=== PATIENT | male | born 1980 | race Caucasian/White ===

== ENCOUNTER 2016-12-08 06:51 | Inpatient (IN) | payer SELFPAY ==
[~2016-12-08] VITALS: Ht 180.3 cm; Wt 107.2 kg
[~2016-12-08 06:51] MED LIST: ZYPR20TA PO
[2016-12-08 11:20] VITALS: BP 128/58; PULSE 66; RESP 16; TEMP 98.3; O2SAT 100
[2016-12-08] MEDS ORDERED: LORazepam 2 MG/ML VIAL IM PRN (12:30)
[2016-12-08] MEDS ORDERED: MAGNESIUM HYDROXIDE SUSP 30 ML CUP PO PRN ×2 (12:30→14:15)
[2016-12-08] MEDS ORDERED: diphenhydrAMINE HCL 50 MG/ML VIAL - HS PRN IM (12:30)
[2016-12-08] MEDS ORDERED: diphenhydrAMINE HCL 50 MG/ML VIAL IM PRN (12:30)
[2016-12-08] MEDS ORDERED: ACETAMINOPHEN 325 MG TAB PO PRN ×2 (12:30→14:15)
[2016-12-08] MEDS ORDERED: LORazepam 1 MG TAB PO PRN (12:30)
[2016-12-08] MEDS ORDERED: diphenhydrAMINE HCL 50 MG CAP PO PRN (12:30)
[2016-12-08] MEDS ORDERED: ALUMINUM/MAGNESIUM/SIMETH 30 ML CUP PO PRN ×2 (12:30→14:15)
[2016-12-08] MEDS ORDERED: diphenhydrAMINE HCL 50 MG CAP - HS PRN PO (12:30)
[2016-12-08] MEDS ORDERED: hydrOXYzine HCL 50 MG TAB PO PRN (14:15)
[2016-12-08] MEDS: OLANZapine ODT 10 MG TAB PO SCH ×2 (14:30→20:59)
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
[2016-12-08 16:00] VITALS: BP 122/58; PULSE 58; RESP 18; TEMP 97.3; O2SAT 99
[2016-12-08] MEDS: traZODone HCL 50 MG TAB PO SCH (20:59)
[2016-12-09 05:26] VITALS: BP 101/59; PULSE 59; RESP 16; TEMP 97.9; O2SAT 97
[2016-12-09 08:08] LABS: ANION GAP 5 MEQ/L (5-15); BICARBONATE 29.7 MEQ/L (21.0-32.0); BLOOD UREA NITROGEN 16 MG/DL (7-18); CHLORIDE 108 MEQ/L (98-107); GLOMERULAR FILTRATION RATE 104 ML/MIN (>89); SODIUM (NA) 143 MEQ/L (136-145)
[2016-12-09 08:10] LABS: HDL CHOLESTEROL 32.4 MG/DL (40.0-60.0); LDL CHOLESTEROL 113 MG/DL (0-99)
[2016-12-09] MEDS: OLANZapine ODT 10 MG TAB PO SCH ×2 (08:35→20:56)
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
--- NOTE | 2016-12-09 10:42 | HHI.PYPN ---
Subjective Remarks Patient seen laying in bed, with floor staff, chart reviewed, patient compliant medications. Patient continues to isolate, his speech is slowed with decreased rapid or pressured . The voices have diminished somewhat but are still present , he remains vigilant 30 states his temper is calmer today. He stated he had a good night's rest last night compliant medications. For now continue treatment Review of Systems Except as stated in HPI: all other systems reviewed are Neg Objective Alert: Yes [place]: Person, Place, Date, Situation Mood: Angry (mildly and subtly), Calm Affect: Restricted Memory Intact: Comment (fair) Hallucinations: Auditory Delusions: Yes Delusion Type: Paranoid Suicidal: Ideation Homicidal: Ideation Insight/Judgment Poor Labs Test 12/09/16 06:59 Sodium Level 143 MEQ/L Potassium Level 4.0 MEQ/L Chloride Level 108 MEQ/L Carbon Dioxide Level 29.7 MEQ/L Anion Gap 5 MEQ/L Blood Urea Nitrogen 16 MG/DL Creatinine 0.83 MG/DL Estimat Glomerular Filtration 104 ML/MIN Rate Random Glucose 87 MG/DL Calcium Level 8.9 MG/DL Triglycerides Level 77 MG/DL Cholesterol Level 161 MG/DL LDL Cholesterol 113 MG/DL HDL Cholesterol 32.4 MG/DL Cholesterol/HDL Ratio 4.96 RATIO Vitals/IOs Vital Signs Date Time Temp Pulse Resp B/P Pulse Ox O2 Delivery O2 Flow Rate FiO2 12/09/16 05:26 97.9 59 16 101/59 97 Assessment & Plan Problem List: (1) Schizoaffective disorder, bipolar type ICD Code: F25.0 (2) Marijuana abuse ICD Code: F12.10 Assessment & Plan Estimated LOS: days patient continues psychotic irritable though slightly softened. Compliant medications Justification for Cont. Inpt. At this time patient will decompensate if placed in a lower level of care Request HC Surrog/Guard Advoc?: No Stanley White MD Dec 09, 2016 10:41
[2016-12-09 16:15] VITALS: BP 120/56; PULSE 87; RESP 16; TEMP 98.4; O2SAT 95
[2016-12-09 17:01] LABS: HEMOGLOBIN A1a 1.2 %; HEMOGLOBIN A1b 0.9 %; HEMOGLOBIN LA1C 1.7 %; HEMOGLOBIN P3 3.2 %
[2016-12-09] MEDS: traZODone HCL 50 MG TAB PO SCH (20:56)
[2016-12-10 05:27] VITALS: BP 108/66; PULSE 59; RESP 18; TEMP 97.6; O2SAT 98
[2016-12-10] MEDS: OLANZapine ODT 10 MG TAB PO SCH ×2 (09:00→21:24)
--- NOTE | 2016-12-10 12:25 | HHI.PYPN ---
Subjective Remarks Patient seen in [place] with counselor Yadiel. Chart reviewed. Patient states voices are diminishing he is feeling calmer. Compliant medications. He does denies suicidality homicidality. Distally feel patient does have the capacity to sign voluntarily focus admission. I will lift Dailey act allow her to sign voluntary Review of Systems Except as stated in HPI: all other systems reviewed are Neg Objective Alert: Yes [place]: Person, Place, Date, Situation Mood: Angry (mildly and subtly), Calm Affect: Restricted Memory Intact: Comment (fair) Hallucinations: Auditory (markedly diminished) Delusions: Yes Delusion Type: Paranoid Suicidal: Ideation Homicidal: Ideation Insight/Judgment Poor Vitals/IOs Vital Signs Date Time Temp Pulse Resp B/P Pulse Ox O2 Delivery O2 Flow Rate FiO2 12/10/16 05:27 97.6 59 18 108/66 98 Intake and Output 12/09/16 12/09/16 12/10/16 08:00 16:00 00:00 Intake Total 960 ml Balance 960 ml Assessment & Plan Problem List: (1) Schizoaffective disorder, bipolar type ICD Code: F25.0 (2) Marijuana abuse ICD Code: F12.10 Assessment & Plan Estimated LOS: days patient psychosis is softening, showing cooperation of the medication of the milieu. Thus I will lift Dailey act allow patient to sign voluntary Justification for Cont. Inpt. At this time patient will decompensate then placed in the lower level of care Discharge Planning To be determined Stanley White MD Dec 10, 2016 12:25
[2016-12-10] MEDS: traZODone HCL 50 MG TAB PO SCH (21:24)
[2016-12-10 21:54] VITALS: BP 122/65; PULSE 66; RESP 18; TEMP 97.9; O2SAT 96
[2016-12-11 06:08] VITALS: BP 117/58; PULSE 58; RESP 18; TEMP 98; O2SAT 97
[2016-12-11] MEDS: OLANZapine ODT 10 MG TAB PO SCH ×2 (08:45→20:28)
--- NOTE | 2016-12-11 10:15 | PD.TTN ---
Present for Treatment Team Treatment Team Staff: Provider (DR White), Psych Therapist (Dianelys Tolentino), Occupational Therapist (Isabel) Patient Problems 1. Discharge planning 2. Medication compliance 3. Knowledge deficit 4. Lack of coping skills Progress Toward Goals Provider Input: Pt is taking meds willing to discuss voluntary stay Psych Therapist Input: pt is somewhat scattered but open to stay a few days and following up at [facility] Occupational Therapist Input: does not come to any groups stays in room Dianelys Tolentino [facility] Dec 11, 2016 10:15
--- NOTE | 2016-12-11 13:35 | HHI.PYPN ---
Subjective Remarks Patient seen in his room with nurse Mila, patient calm cooperative says the voices are just about gone, denying suicidality homicidality, states his temperatures under good control his head no outbursts. Is hoping for discharge tomorrow return home with his family, to follow-up with Nhan clarke Review of Systems Except as stated in HPI: all other systems reviewed are Neg Objective Alert: Yes [place]: Person, Place, Date, Situation Mood: Angry (mildly and subtly), Calm Affect: Restricted Memory Intact: Comment (fair) Hallucinations: Auditory (markedly diminished) Delusions: Yes Delusion Type: Paranoid Suicidal: Ideation Homicidal: Ideation Insight/Judgment Poor Vitals/IOs Vital Signs Date Time Temp Pulse Resp B/P Pulse Ox O2 Delivery O2 Flow Rate FiO2 12/11/16 06:08 98.0 58 18 117/58 97 Intake and Output 12/10/16 12/10/16 12/11/16 08:00 16:00 00:00 Intake Total 480 ml Balance 480 ml Assessment & Plan Problem List: (1) Schizoaffective disorder, bipolar type ICD Code: F25.0 (2) Marijuana abuse ICD Code: F12.10 Assessment & Plan Estimated LOS: days patient continues to show improvement with decrease in his auditory hallucinations come with continuing coping with unit without explosive behavior. Justification for Cont. Inpt. This time patient will decompensate if placed in a lower level of care Discharge Planning To be determined Stanley White MD Dec 11, 2016 13:35
[2016-12-11 19:03] VITALS: BP 127/58; PULSE 69; RESP 16; TEMP 98.3; O2SAT 97
[2016-12-11] MEDS: traZODone HCL 50 MG TAB PO SCH (20:28)
[2016-12-12 05:31] VITALS: BP 114/63; PULSE 70; RESP 16; TEMP 97.9; O2SAT 97
[2016-12-12] MEDS: OLANZapine ODT 10 MG TAB PO SCH (09:00)
[2016-12-12] MEDS ORDERED: OLANZ10 PO (12:16)
[2016-12-12] MEDS ORDERED: TRAZ50TA12 PO (12:16)
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
== END 2016-12-12 13:20 | disposition home or self-care (01) | DRG 885 ==
LOC: H260 11:01
PROVIDERS: ADMIT Psychiatry & Neurology Psychiatry; ATTEND Psychiatry & Neurology Psychiatry
DX: F25.0 Schizoaffective disorder, bipolar type (principal); R45.851 Suicidal ideations; F12.10 Cannabis abuse, uncomplicated
CPT/HCPCS: 80048; 80061; 83036; Q0163

== ENCOUNTER 2016-12-08 08:17 | Emergency (ER) | payer OTHER ==
[~2016-12-08] VITALS: Ht 180.3 cm; Wt 109.0 kg
[2016-12-08 08:30] VITALS: BP 130/68; PULSE 65; RESP 21; TEMP 98.2; O2SAT 96
[2016-12-08 09:16] LABS: AUTOMATED NEUTROPHIL # 3.9 TH/MM3 (1.8-7.7); BASOPHIL % 0.5 % (0.0-2.0); EOSINOPHIL # 0.3 TH/MM3 (0-0.4); EOSINOPHIL % 3.8 % (0.0-4.0); HEMATOCRIT 49.1 % (39.0-51.0); HEMO FLAGS DIFF FINAL; LYMPH % 32.2 % (9.0-44.0); LYMPHOCYTE # 2.3 TH/MM3 (1.0-4.8); MEAN CELL VOLUME 87.2 FL (80.0-100.0); MEAN CORPUSCULAR HEMOGLOBIN 29.1 PG (27.0-34.0); MEAN CORPUSCULAR HGB CONC 33.4 % (32.0-36.0); MONO % 7.7 % (0.0-8.0); NEUT % 55.8 % (16.0-70.0); PLATELET COUNT 200 TH/MM3 (150-450); RED BLOOD COUNT 5.63 MIL/MM3 (4.50-5.90); RED CELL DISTRIBUTION WIDTH 13.8 % (11.6-17.2); WHITE BLOOD COUNT 7.1 TH/MM3 (4.0-11.0)
--- NOTE | 2016-12-08 09:16 | PD ---
HPI Chief Complaint: Psychiatric Symptoms Time Seen by Provider: 09:12 Travel History International Travel<30 days: No Contact w/Intl Traveler<30days: No History of Present Illness HPI This is a 36-year-old male who has a history of schizophrenia who is transferred here from [facility] for suicidal thoughts. He says he feels like his schizophrenia is getting out of control. He has no active medical complaints. His urine tox was positive for cannabinoids at the outside hospital. PFSH Past Medical History Anxiety: Yes Depression: Yes Diminished Hearing: No Psychiatric: Yes Schizophrenia: Yes Tetanus Vaccination: < 5 Years Past Surgical History Surgical History: No Previous Surgery Social History Alcohol Use: No Tobacco Use: Yes (DAILY 2 PPD ) Substance Use: Yes ( POSITIVE POT) Allergies-Medications (Allergen,Severity, Reaction): Coded Allergies: No Known Allergies (Verified , 12/08/16) Reported Meds & Prescriptions Reported Meds & Active Scripts Active No Active Prescriptions or Reported Medications Review of Systems General / Constitutional: No: Fever, Chills Cardiovascular: No: Chest Pain or Discomfort Physical Exam Narrative GENERAL: Disheveled appearing, in no acute distress SKIN: Warm and dry. HEAD: Atraumatic. Normocephalic. ENT: No nasal bleeding or discharge. Moist mucous membranes MUSCULOSKELETAL: No obvious deformities. No clubbing. No cyanosis. No edema. NEUROLOGICAL: Awake and alert. No obvious cranial nerve deficits. Motor grossly within normal limits. Normal speech. PSYCHIATRIC: Somewhat flat affect and poor eye contact. Data Data Orders Complete Blood Count With Diff (12/08/16 08:37) Comprehensive Metabolic Panel (12/08/16 08:37) Urinalysis - C+S If Indicated (12/08/16 08:37) Psych Screen (12/08/16 08:37) Diet Regular Basic (12/08/16 Breakfast) Drug Screen, Random Urine (12/08/16 08:37) Alcohol (Ethanol) (12/08/16 08:37) Salicylates (Aspirin) (12/08/16 08:37) Tylenol (Acetaminophen) (12/08/16 08:37) Labs Laboratory Tests Test 12/08/16 08:50 White Blood Count 7.1 TH/MM3 Red Blood Count 5.63 MIL/MM3 Hemoglobin 16.4 GM/DL Hematocrit 49.1 % Mean Corpuscular Volume 87.2 FL Mean Corpuscular Hemoglobin 29.1 PG Mean Corpuscular Hemoglobin 33.4 % Concent Red Cell Distribution Width 13.8 % Platelet Count 200 TH/MM3 Mean Platelet Volume 7.7 FL Neutrophils (%) (Auto) 55.8 % Lymphocytes (%) (Auto) 32.2 % Monocytes (%) (Auto) 7.7 % Eosinophils (%) (Auto) 3.8 % Basophils (%) (Auto) 0.5 % Neutrophils # (Auto) 3.9 TH/MM3 Lymphocytes # (Auto) 2.3 TH/MM3 Monocytes # (Auto) 0.5 TH/MM3 Eosinophils # (Auto) 0.3 TH/MM3 Basophils # (Auto) 0.0 TH/MM3 CBC Comment DIFF FINAL Differential Comment MDM Medical Decision Making Medical Screen Exam Complete: Yes Emergency Medical Condition: Yes Differential Diagnosis Schizophrenia, depression, substance induced mood disorder Narrative Course This is a 36-year-old male who presents to the emergency department with depression in the setting of schizophrenia. He was transferred from outside hospital. Currently he has no medical complaints. He will be evaluated by psychiatry. Scripts No Active Prescriptions or Reported Meds Kyra Peralta MD Dec 08, 2016 09:16
[2016-12-08 09:35] LABS: ANION GAP 7 MEQ/L (5-15); AST (GOT) 19 U/L (15-37); BICARBONATE 24.9 MEQ/L (21.0-32.0); BLOOD UREA NITROGEN 14 MG/DL (7-18); CHLORIDE 108 MEQ/L (98-107); GLOMERULAR FILTRATION RATE 137 ML/MIN (>89); SODIUM (NA) 140 MEQ/L (136-145)
[2016-12-08 09:38] LABS: ACETAMINOPHEN LESS THAN 2.0 MCG/ML (10.0-30.0); ALKALINE PHOSPHATASE 105 U/L (45-117); ALT (GPT) 24 U/L (12-78); TOTAL BILIRUBIN ADULT 0.7 MG/DL (0.2-1.0)
== END 2016-12-08 11:00 ==
LOC: NEPD 08:17
DX: F20.9 Schizophrenia, unspecified (principal)
CPT/HCPCS: 80053; 80307; 85025; 99284

== ENCOUNTER 2017-01-17 13:41 | Inpatient (IN) | payer SELFPAY ==
[~2017-01-17] VITALS: Ht 180.3 cm; Wt 107.7 kg
[~2017-01-17 13:41] MED LIST changes: +OLANZ10 PO; +TRAZ50TA12 PO; -ZYPR20TA PO
[2017-01-17 14:00] VITALS: BP 118/76; PULSE 82; RESP 18; TEMP 97.8; O2SAT 96
--- NOTE | 2017-01-17 15:53 | PD ---
HPI Chief Complaint: Psychiatric Symptoms Time Seen by Provider: 15:50 Travel History International Travel<30 days: No Contact w/Intl Traveler<30days: No Traveled to known affect area: No History of Present Illness HPI 36-year-old male that presents to the ED for evaluation of schizophrenia. Patient was Dailey acted at [facility] secondary to hallucinations and hearing voices. Patient has a chronic history of schizophrenia and has been admitted to this hospital before. He apparently is noncompliant. He voices no suicidal or homicidal ideation. He had blood work and imaging at the [facility] and was all unremarkable. Patient was apparently medically clear at the facility and was accepted by one of or psychiatrist here. She denies any substance abuse. no other medical issues. [facility] Past Medical History Anxiety: Yes Depression: Yes Cancer: No Cardiovascular Problems: No Diabetes: No Diminished Hearing: No Genitourinary: No Musculoskeletal: No Neurologic: No Psychiatric: Yes (Hx of treatment for Schizophrenia) Reproductive: No Respiratory: No Schizophrenia: Yes (SCHIZOAFFECTIVE, BIPOLAR TYPE) Seizures: No Past Surgical History Surgical History: No Previous Surgery Social History Alcohol Use: No Tobacco Use: No Substance Use: Yes (THC) Allergies-Medications (Allergen,Severity, Reaction): Coded Allergies: No Known Allergies (Verified , 01/17/17) Reported Meds & Prescriptions Reported Meds & Active Scripts Active Trazodone (Trazodone HCl) 50 Mg Tab 50 Mg PO HS Zyprexa Zydis (Olanzapine) 10 Mg Tab 10 Mg PO BID Review of Systems Except as stated in HPI: all other systems reviewed are Neg Physical Exam Narrative GENERAL: SKIN: Warm and dry. HEAD: Atraumatic. Normocephalic. EYES: Pupils equal and round. No scleral icterus. No injection or drainage. ENT: No nasal bleeding or discharge. Mucous membranes pink and moist. Tongue is midline. Uvula deviation. NECK: Trachea midline. No JVD. CARDIOVASCULAR: Regular rate and rhythm. No murmurs, S3, S4. RESPIRATORY: No accessory muscle use. Clear to auscultation. Breath sounds equal bilaterally. GASTROINTESTINAL: Abdomen soft, non-tender, nondistended. Hepatic and splenic margins not palpable. MUSCULOSKELETAL: Extremities without clubbing, cyanosis, or edema. No obvious deformities. Full range of motion of the upper and lower extremities bilaterally. 2+ pulses bilaterally. NEUROLOGICAL: Awake and alert. No obvious cranial nerve deficits. Motor grossly within normal limits. Five out of 5 muscle strength in the arms and legs. Normal speech. PSYCHIATRIC: Appropriate mood and affect; insight and judgment normal. Data Data Last Documented VS Vital Signs Date Time Temp Pulse Resp B/P Pulse Ox O2 Delivery O2 Flow Rate FiO2 01/17/17 14:00 97.8 82 18 118/76 96 Room Air Orders Diet Regular Basic (01/17/17 Lunch) Psych Screen (01/17/17 13:54) Diet Regular Basic (01/17/17 Dinner) MDM Medical Decision Making Medical Screen Exam Complete: Yes Emergency Medical Condition: Yes Medical Record Reviewed: Yes Differential Diagnosis Depression versus suicidal ideation versus anxiety versus adjustment disorder versus mood disorder versus bipolar disorder versus schizophrenia versus paranoid disorder versus psychosis versus substance abuse versus alcohol abuse versus alcohol induced psychosis versus homicidality addition versus cutting versus personality disorder Narrative Course 36-year-old male that presents to the ED for evaluation of psych. Patient was properly examined and was found to have no signs of acute medical distress. Labs were drawn on a different facility and also able to review some of the records and there is not abnormality. This time patient is deemed medically cleared to be seen by psychiatry. Okay to be seen by psych. Mental health screening was discussed with the patient. Diagnosis Primary Impression: Schizophrenia, paranoid type Fred Pardo Jan 17, 2017 15:53
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
[2017-01-17] MEDS ORDERED: MAGNESIUM HYDROXIDE SUSP 30 ML CUP PO PRN (17:45)
[2017-01-17] MEDS ORDERED: LORazepam 2 MG/ML VIAL IM PRN (17:45)
[2017-01-17] MEDS ORDERED: ACETAMINOPHEN 325 MG TAB PO PRN (17:45)
[2017-01-17] MEDS ORDERED: ALUMINUM/MAGNESIUM/SIMETH 30 ML CUP PO PRN (17:45)
[2017-01-17] MEDS ORDERED: HALOPERIDOL 5 MG TAB PO PRN (17:45)
[2017-01-17] MEDS ORDERED: BENZTROPINE MESYLATE 2 MG/2 ML VIAL IM PRN (17:45)
[2017-01-17] MEDS ORDERED: HALOPERIDOL LACTATE 5 MG/ML AMP IM PRN (17:45)
[2017-01-17] MEDS ORDERED: BENZTROPINE MESYLATE 1 MG TAB PO PRN (17:45)
[2017-01-17 18:14] VITALS: BP 140/84; PULSE 82; RESP 18; TEMP 98.2; O2SAT 98
[2017-01-17] MEDS: LORazepam 1 MG TAB PO PRN (18:33)
[2017-01-17] MEDS: OLANZapine ODT 15 MG TAB PO SCH (21:36)
[2017-01-17] MEDS: traZODone HCL 50 MG TAB PO PRN (21:37)
[2017-01-18 05:35] VITALS: BP 115/52; PULSE 60; RESP 18; TEMP 98.3; O2SAT 96
[2017-01-18] MEDS: NICOTINE 21 MG/24 HR PATCH T-DERMAL SCH (09:00)
[2017-01-18] MEDS: REMOVE OLD PATCH T-DERMAL SCH (09:00)
[2017-01-18] MEDS: LORazepam 1 MG TAB PO PRN ×2 (13:35→20:27)
--- NOTE | 2017-01-18 17:05 | HHI.PYPN ---
Subjective Remarks This is a request for second opinion. Patient was seen, case discussed with nursing, and admission note reviewed. Patient has has not had any outbursts or aggressive behavior on the unit. He admits to going off his medications and having a relapse of auditory hallucinations. Since starting medication here, patient says the hallucinations are less bothersome. He says they are telling him to hurt himself but he has no ideation intent or plan of doing so. No delusions were elicited. Objective Alert: Yes [place]: Person, Place Mood: Oppositional Affect: Other (anxious) Memory Intact: Immediate (not evaluated) Hallucinations: Auditory (less bothersome, to hurt himself) Delusions: Yes Delusion Type: Paranoid (internally stimulated) Suicidal: Ideation (denies) Homicidal: Ideation (denies) Insight/Judgment Poor Vitals/IOs Vital Signs Date Time Temp Pulse Resp B/P Pulse Ox O2 Delivery O2 Flow Rate FiO2 01/18/17 08:02 01/18/17 05:35 98.3 60 18 96 01/17/17 14:00 Room Air Assessment & Plan Problem List: (1) Schizophrenia, paranoid type ICD Code: F20.0 (2) Marijuana abuse ICD Code: F12.10 Assessment & Plan I agree with the first opinion to continue petition. Criteria include acute psychosis Justification for Cont. Inpt. Patient will decompensate in a less restrictive setting Request HC Surrog/Guard Advoc?: Yes Dillan Gloria DO Jan 18, 2017 17:05
[2017-01-18 17:16] VITALS: BP 120/81; PULSE 85; RESP 18; TEMP 99; O2SAT 99
[2017-01-18] MEDS: OLANZapine ODT 15 MG TAB PO SCH (20:20)
[2017-01-19 04:31] VITALS: BP 106/69; PULSE 76; RESP 20; TEMP 98.7; O2SAT 96
[2017-01-19] MEDS: REMOVE OLD PATCH T-DERMAL SCH (09:00)
[2017-01-19] MEDS: NICOTINE 21 MG/24 HR PATCH T-DERMAL SCH (09:00)
--- NOTE | 2017-01-19 09:28 | HHI.PYPN ---
Subjective Remarks Patient seen and examined with nurse and counselor. Chart reviewed. Case discussed with nursing staff who reports patient has been quiet. Remains delusional about looking for his . On my examination today, the patient continues to articulate delusions about needing to look for his . He also says that "years ago, I lost my keys to my house. There is this nancy on the unit [referring to a manic peer] who's got my keys." He says that, although he does not know this other patient "I've known for a long time that he has my keys." Denies side effects from medications. No physical complaints. Review of Systems ROS Limitations: Psychotic, Poor Historian Except as stated in HPI: all other systems reviewed are Neg Objective Alert: Yes [place]: Person, Place Mood: Calm Affect: Blunted Memory Intact: Comment (somewhat confabulated but generally intact) Hallucinations: Other (denies AVH today) Delusions: Yes Delusion Type: Paranoid Suicidal: Ideation (denies SI) Homicidal: Ideation (denies HI) Insight/Judgment Poor Remarks No motor abnormalities. Grooming and hygiene fair. Thought process generally linear. Labs Labs reviewed. Vitals/IOs Vital Signs Date Time Temp Pulse Resp B/P Pulse Ox O2 Delivery O2 Flow Rate FiO2 01/19/17 04:31 98.7 76 20 106/69 96 01/17/17 14:00 Room Air Assessment & Plan Problem List: (1) Schizophrenia, paranoid type ICD Code: F20.0 (2) Marijuana abuse ICD Code: F12.10 Assessment & Plan Titrate Zyprexa 20 mg at bedtime to target psychosis. Continue to monitor on the unit. Continue other medications and care as ordered. Justification for Cont. Inpt. Impairment in reality construction. Medication changes. High risk for decompensation in a less restrictive environment. Discharge Planning Pending psychiatric stabilization Request HC Surrog/Guard Advoc?: Yes Lukas Thomas MD Jan 19, 2017 09:28
[2017-01-19 10:53] LABS: ANION GAP 8 MEQ/L (5-15); BICARBONATE 26.7 MEQ/L (21.0-32.0); BLOOD UREA NITROGEN 14 MG/DL (7-18); CHLORIDE 106 MEQ/L (98-107); GLOMERULAR FILTRATION RATE 122 ML/MIN (>89); POTASSIUM 4.2 MEQ/L (3.5-5.1); SODIUM (NA) 141 MEQ/L (136-145)
[2017-01-19 10:55] LABS: HDL CHOLESTEROL 35.5 MG/DL (40.0-60.0); LDL CHOLESTEROL 81 MG/DL (0-99)
[2017-01-19 17:05] LABS: HEMOGLOBIN A1a 1.1 %; HEMOGLOBIN A1b 0.9 %; HEMOGLOBIN Ao 85.9 %; HEMOGLOBIN F 0.9 %; HEMOGLOBIN LA1C 1.8 %; HEMOGLOBIN P3 3.5 %
[2017-01-19 18:02] VITALS: BP 104/57; PULSE 72; RESP 18; TEMP 98.2; O2SAT 97
[2017-01-19] MEDS: OLANZapine ODT 20 MG TAB PO SCH (21:00)
[2017-01-19] MEDS: LORazepam 1 MG TAB PO PRN (22:01)
[2017-01-20 06:07] VITALS: BP 114/66; PULSE 80; RESP 18; TEMP 97.4; O2SAT 95
--- NOTE | 2017-01-20 12:56 | HHI.PYPN ---
Subjective Remarks Patient seen and examined with counselor and occupational therapist. Chart reviewed. Case discussed in treatment team. Patient remains delusional today. 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 He says this patient "might even help me find my ." Intrusive. Internally stimulated. We discuss the possibility of SENIOR CARE placement, and patient is quite resistant to this. Denies side effects from medications. No physical complaints. Review of Systems ROS Limitations: Psychotic, Poor Historian Except as stated in HPI: all other systems reviewed are Neg Objective Alert: Yes [place]: Person, Place Mood: Calm Affect: Blunted Memory Intact: Comment (not assessed) Hallucinations: Auditory (int stim) Delusions: Yes Delusion Type: Paranoid Suicidal: Ideation (No SI) Homicidal: Ideation (No HI) Insight/Judgment Poor Remarks No motor abnormalities noted. Grooming and hygiene fair. Thought process somewhat perseverative. Labs Labs reviewed. Vitals/IOs Vital Signs Date Time Temp Pulse Resp B/P Pulse Ox O2 Delivery O2 Flow Rate FiO2 01/20/17 06:07 97.4 80 18 114/66 95 01/17/17 14:00 Room Air Assessment & Plan Problem List: (1) Schizophrenia, paranoid type ICD Code: F20.0 (2) Marijuana abuse ICD Code: F12.10 Assessment & Plan Inadequate response to current therapy. Titrate Zyprexa to 5/20mg to target psychosis. Continue to monitor on the high acuity unit. Continue other medications and care as ordered. Justification for Cont. Inpt. Medication changes in process. Impairment in reality construction. High risk for decompensation in a less restrictive environment. Discharge Planning Pending stabilization. Patient would likely benefit from placement. Request HC Surrog/Guard Advoc?: Yes Lukas Thomas MD Jan 20, 2017 12:56
--- NOTE | 2017-01-20 13:36 | PD.TTN ---
Present for Treatment Team Treatment Team Staff: Provider (Dr. Thomas), Nurse (Sushma Garibay, NICK), Occupational Therapist (Mike Putnam OT) Patient Problems 1. Discharge planning 2. Medication compliance 3. Knowledge deficit 4. Lack of coping skills Progress Toward Goals Provider Input: Pt medication regiment will continue to be adjusted to help further stabilization. Nurse Input: Pt presents as no behavioral issues, seclusive, medication compliant and delusional. Psych Therapist Input: Pt remains with poor insight, delusional, disorganized, calm, appropriate, withdrawn and uncooperative with idea of placement at [facility]. Occupational Therapist Input: Pt is attending select groups but does not participate. Documentation Scribe: FÁTIMA Caballero Date Resolved: Jan 20, 2017 Luis Daniel Arnold Jan 20, 2017 13:36
[2017-01-20 18:40] VITALS: BP 118/74; PULSE 80; RESP 18; TEMP 97.8; O2SAT 96
[2017-01-20] MEDS: OLANZapine ODT 20 MG TAB PO SCH (20:44)
[2017-01-20] MEDS: traZODone HCL 50 MG TAB PO PRN (20:44)
[2017-01-21 05:45] VITALS: BP 106/56; PULSE 56; RESP 18; TEMP 97.9; O2SAT 100
[2017-01-21] MEDS: OLANZapine 5 MG TAB PO SCH (09:00)
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
[2017-01-21 18:14] VITALS: BP 129/75; PULSE 18; RESP 18; TEMP 99.6; O2SAT 98
[2017-01-21] MEDS: OLANZapine ODT 20 MG TAB PO SCH (21:07)
[2017-01-21] MEDS: traZODone HCL 50 MG TAB PO PRN (21:24)
[2017-01-21] MEDS: LORazepam 1 MG TAB PO PRN (23:09)
[2017-01-22 06:06] VITALS: BP 100/55; PULSE 55; RESP 18; TEMP 97; O2SAT 97
[2017-01-22] MEDS: OLANZapine 5 MG TAB PO SCH (08:36)
[2017-01-22] MEDS ORDERED: OLANZ20 PO (11:00)
[2017-01-22] MEDS ORDERED: OLAN5TAB PO (11:00)
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
== END 2017-01-22 11:55 | disposition home or self-care (01) | DRG 885 ==
LOC: NEPJ 13:41 → NEDA 17:31 → H270 18:06
PROVIDERS: ADMIT Psychiatry & Neurology Psychiatry; ATTEND Psychiatry & Neurology Psychiatry
DX: F20.0 Paranoid schizophrenia (principal); R45.851 Suicidal ideations; Z91.14 Patient's other noncompliance with medication regimen; F32.9 Major depressive disorder, single episode, unspecified; F41.9 Anxiety disorder, unspecified; F12.10 Cannabis abuse, uncomplicated; F17.210 Nicotine dependence, cigarettes, uncomplicated; Z91.5 Personal history of self-harm
CPT/HCPCS: 80048; 80061; 83036

== ENCOUNTER 2017-11-26 06:46 | Inpatient (IN) | payer OTHER ==
[~2017-11-26 06:46] MED LIST changes: +HALO100P IM; +HALO10TA PO; -OLANZ10 PO; -TRAZ50TA12 PO
[2017-11-26 07:53] VITALS: BP 120/70; PULSE 78; RESP 17; TEMP 97; O2SAT 95
--- NOTE | 2017-11-26 12:10 | HHI.HP ---
Provisional Diagnosis Admission Date November 26, 2017 at 07:58 [place] I. 1. Schizophrenia, paranoid type, acute exacerbation 2. Suspected polysubstance abuse [place] II. Deferred Certification of Person's Competence To Provide Express and Informed Consent I have personally examined Arturo Pardo , a person being served at [facility] on, November 26, 2017 12:10. Express and informed consent means consent voluntarily given in writing, by a competent person, after sufficient explanation and disclosure of the subject matter involved to enable the person to make a knowing and willful decision without any element of force, fraud, deceit, duress, or other form of constraint or coercion. This person is 18 years of age or older, is not now known to be incompetent to consent to treatment with a guardian advocate, and does not have a health care surrogate or proxy currently making medical treatment decisions. I have found this person to be one of the following: [x] Competent to provide express and informed consent, as defined above, for voluntary admission to this facility and is competent to provide express and informed consent for treatment. He/she has the consistent capacity to make well reasoned, willful, and knowing decisions concerning his or her medical or mental health treatment. The person fully and consistently understands the purpose of the admission for examination/placement and is fully capable of personally exercising all rights assured under [place] [] Incompetent to provide express and informed consent to voluntary admission, and this is incompetent to provide express and informed consent to treatment. The person must be transferred to involuntary status and a petition for a guardian advocate filed with the Circuit Court. [] Refusing to provide express and informed consent to voluntary admission but is competent to provide express and informed consent for treatment. The person must be discharged or transferred to involuntary status. Form shall be completed within 24 hours of a person's arrival at the receiving facility and filed in the clinical record of each person: 1. Admitted on a voluntary basis 2. Permitted to provide express and informed consent to his/her own treatment 3. Allowed to transfer from involuntary to voluntary status 4. Prior to permitting a person to consent to his or her own treatment after having been previously found incompetent to consent to treatment. History of Present Illness Capacity: Has Capacity Psych Chief Complaint: Psychosis HPI Mr. Pardo is a 37-year-old male with a history of schizophrenia who presents in transfer from [facility] to [facility] under a [place]iley act. Documentation from outside hospital reviewed. Patient presented there complaining of depression and suicidal ideation as well as seeing and hearing "biblical stuff. " He also reported command auditory hallucinations to self injure to the psychiatric screener at outside hospital. Reviewing our electronic medical record, I note that the patient was most recently admitted under my care at the beginning of October, at which time he was started on long-acting injectable Haldol decanoate. Patient seen and examined with nurse. Chart reviewed. Case discussed with nursing staff. On my examination today, the patient is a somewhat vague historian. He endorses ongoing auditory hallucinations of "same ol', same ol'. " When pressed, he reports to hearing indistinct voices "repeating stuff over and over again." He also reports some paranoia regarding his neighbors. No other delusional material elicited. He denies any suicidal or homicidal ideation. Mood is "okay, I guess" although the patient does report that he has been feeling down for the last few days without specific stressor. No other depressive or hypomanic/manic symptoms. Affect is quite flat. Remainder of the psychiatric ROS is negative. No acute physical complaints. Past psychiatric history: Patient has a history of schizophrenia. He follows at [facility]. He does report that he has followed up and has also received a long-acting injectable, but see below. Medication nonadherence is documented at outside hospital. He denies any history of psychiatric admissions or suicide attempts. Family history: The patient denies any family history of mental illness. Chemical dependency history: The patient denies any abuse of drugs or alcohol, although urine toxicology at outside hospital is positive for cocaine and cannabinoids. He can provide no explanation for this finding. Social history: Patient reports that this is unchanged from previous assessments. He denies any access to guns or firearms. I did place a call over to [facility] and patient's most recent reported medications were Zyprexa 10 mg at bedtime and trazodone 100 mg at bedtime. There is no record of recent long-acting injectable administration. Review of Systems ROS Limitations: Psychotic, Poor Historian Except as stated in HPI: all other systems reviewed are Neg Past Family Social History Coded Allergies: No Known Allergies (Verified Allergy, Unknown, 4/3/18) Active Scripts Haloperidol Decanoate Inj (Haldol Decanoate Inj) 100 Mg/Ml Inj, 300 MG IM Q28D for Schizophrenia, #3 VIAL 0 Refills This dose of Haldol Dec is due on 11/10/2017. Prov:Lukas Thomas MD 10/19/17 Haloperidol (Haloperidol) 10 Mg Tab, 10 MG PO BID for Mental Health for 15 Days , #30 TAB 1 Refill Continue taking oral Haldol until your next Haldol Decanoate injection or as directed by outpatient provider. Prov:Lukas Thomas MD 10/19/17 Physical Exam Vital Signs Vital Signs Date Time Temp Pulse Resp B/P (MAP) Pulse Ox O2 Delivery O2 Flow Rate FiO2 11/26/17 07:53 97.0 78 17 120/70 (87) 95 Lab Results Laboratories from outside hospital reviewed: CBC unremarkable. CMP unremarkable. Tylenol, salicylate and alcohol level all undetectable. Toxicological findings as above. Urinalysis fairly bland. Mental Status Examination Appearance: Disheveled Consciousness: Alert Orientation: x4 Motor Activity: Normal gait Speech: Slow Language: Adequate Fund of Knowledge: Adequate Attention and Concentration: Adequate Memory: Unremarkable (Grossly intact on clinical exam) Mood: Other ("Okay") Affect: Flat Thought Process & Associations: Intact Thought Content: Hallucinations Hallucination Type: Auditory (Vague. No reported command auditory hallucinations) Delusion Type: Paranoid Suicidal Ideation: No Suicidal Plan: No Suicidal Intention: No Homicidal Ideation: No Homicidal Plan: No Homicidal Intention: No Mental Status Exam Remarks Insight and judgment are fair to poor at best Assessment & Plan Problem List: (1) Schizophrenia, paranoid type ICD Codes: F20.0 - Paranoid schizophrenia Status: Acute (2) Polysubstance abuse ICD Codes: F19.10 - Other psychoactive substance abuse, uncomplicated Assessment & Plan 37-year-old male with psychiatric history as detailed above who presents in transfer from outside hospital under a Dailey act. On my examination today, the patient reports auditory hallucinations and paranoia. Medication nonadherence is suspected. It does not appear that the patient has received a long-acting injectable as he reported. I will plan to admit the patient to the inpatient psychiatric unit for safety, observation and stabilization. Admit inpatient. Voluntary status. Resume oral Haldol 10 mg twice daily. So long as this is well tolerated and there is no evidence that the patient has in fact received a long-acting injectable, plan to administer booster dose of Haldol decanoate. Atarax as needed for anxiety. Benadryl as needed for sleep. Cogentin as needed for EPS. Vitals every shift. Counselor to see. Disposition planning. Estimated length of stay: 5-7 days. Discharge Planning Pending psychiatric stabilization Request HC Surrog/Guard Advoc?: No Lukas Thomas MD November 26, 2017 12:10
[2017-11-26] MEDS ORDERED: BENZTROPINE MESYLATE 2 MG/2 ML VIAL IM PRN (12:30)
[2017-11-26] MEDS ORDERED: ACETAMINOPHEN 325 MG TAB PO PRN (12:30)
[2017-11-26] MEDS ORDERED: ALUMINUM/MAGNESIUM/SIMETH 30 ML CUP PO PRN (12:30)
[2017-11-26] MEDS ORDERED: MAGNESIUM HYDROXIDE SUSP 30 ML CUP PO PRN (12:30)
[2017-11-26] MEDS ORDERED: NICOTINE 21 MG/24 HR PATCH T-DERMAL PRN (12:30)
[2017-11-26] MEDS ORDERED: BENZTROPINE MESYLATE 1 MG TAB PO PRN (12:30)
[2017-11-26] MEDS: hydrOXYzine HCL 50 MG TAB PO PRN (20:52)
[2017-11-26] MEDS: diphenhydrAMINE HCL 50 MG CAP PO PRN (20:52)
[2017-11-26] MEDS: HALOPERIDOL 10 MG TAB PO SCH (20:52)
[2017-11-26] MEDS: REMOVE OLD NICODERM (NICOTINE) PATCH T-DERMAL SCH (21:00)
[2017-11-27 06:13] VITALS: BP 123/77; PULSE 58; RESP 16; TEMP 98.1; O2SAT 96
[2017-11-27] MEDS: HALOPERIDOL 10 MG TAB PO SCH ×2 (09:59→20:58)
--- NOTE | 2017-11-27 15:16 | HHI.PYPN ---
Subjective Chief Complaint: Psychosis Remarks Patient seen for follow, chart reviewed. Discussion nursing staff reported the patient denying any suicide ideations or perceptual disturbances today. Patient was found lying hospital and noted, cooperative. Patient states that he is feeling "good" reports that his neighbors and brought to the hospital because he was yelling at his front door was unable to elaborate more. Patient states that he has not hallucinations "all the time" and that really rarely go away. Patient denies any suicide ideations at this time continues report feeling depressed. Patient denies any paranoid ideation today. Review of Systems Except as stated in HPI: all other systems reviewed are Neg Mental Status Examination Appearance: Disheveled Consciousness: Alert Orientation: x4 Motor Activity: Normal gait Speech: Slow Language: Adequate Fund of Knowledge: Adequate Attention and Concentration: Adequate Memory: Unremarkable (Grossly intact on clinical exam) Mood: Other ("Okay") Affect: Flat Thought Process & Associations: Intact Thought Content: Hallucinations Hallucination Type: Auditory (Vague. No reported command auditory hallucinations) Delusion Type: Paranoid Suicidal Ideation: No Suicidal Plan: No Suicidal Intention: No Homicidal Ideation: No Homicidal Plan: No Homicidal Intention: No Results Vitals/IOs Vital Signs Date Time Temp Pulse Resp B/P (MAP) Pulse Ox O2 Delivery O2 Flow Rate FiO2 11/27/17 06:13 98.1 58 16 123/77 (92) 96 Assessment & Plan Problem List: (1) Schizophrenia, paranoid type ICD Codes: F20.0 - Paranoid schizophrenia Status: Acute (2) Polysubstance abuse ICD Codes: F19.10 - Other psychoactive substance abuse, uncomplicated Assessment & Plan Patient this time continues report feeling depressed but denying suicide ideations. Patient denying any paranoid ideation has a compliant with treatment but also may be minimizing the intensity of auditory hallucinations. We will continue monitor mood and behavior. Discharge planning in progress. Justification for Cont. Inpt. At risk of further decompensation at lower level care. Request HC Surrog/Guard Advoc?: No Elvin Jerry MD November 27, 2017 15:16
[2017-11-27] MEDS: REMOVE OLD NICODERM (NICOTINE) PATCH T-DERMAL SCH (21:00)
[2017-11-28 06:14] VITALS: BP 121/75; PULSE 64; RESP 16; TEMP 97.9; O2SAT 99
--- NOTE | 2017-11-28 09:58 | HHI.PYPN ---
Subjective Chief Complaint: Psychosis Remarks Chart reviewed and discussed with nursing staff. Night staff report that he has been seeing demons and religiously pre-occupied. Patient in his room with NICK Fowler present. Patient denies any suicidal ideations. Appears internally stimulated. He is complaining of movement and discomfort in his legs. Will add cogentin to his medications. He endorses receiving a Haldol Dec [facility] two weeks ago [facility]. Eating and sleeping well. Cooperative and compliant. Mental Status Examination Appearance: Appropriate Consciousness: Alert Orientation: x4 Motor Activity: Normal gait Speech: Slow Language: Adequate Fund of Knowledge: Adequate Attention and Concentration: Adequate Memory: Unremarkable (Grossly intact on clinical exam) Mood: Appropriate Affect: Flat Thought Process & Associations: Intact Thought Content: Hallucinations Hallucination Type: Auditory (Vague. No reported command auditory hallucinations) Delusion Type: Paranoid Suicidal Ideation: No Suicidal Plan: No Suicidal Intention: No Homicidal Ideation: No Homicidal Plan: No Homicidal Intention: No Results Vitals/IOs Vital Signs Date Time Temp Pulse Resp B/P (MAP) Pulse Ox O2 Delivery O2 Flow Rate FiO2 11/28/17 06:14 97.9 64 16 121/75 (90) 99 Assessment & Plan Problem List: (1) Schizophrenia, paranoid type ICD Codes: F20.0 - Paranoid schizophrenia Status: Acute (2) Polysubstance abuse ICD Codes: F19.10 - Other psychoactive substance abuse, uncomplicated Assessment & Plan Patient is cooperative . Eating and sleeping well. Complaining of movement in his legs. Will start on Cogentin. Continue to work towards discharge. Routinely is followed by [facility] . Estimated LOS: days Justification for Cont. Inpt. Moving patient to a lower level of care may result in his decompensation. Request HC Surrog/Guard Advoc?: No Ida Parry November 28, 2017 09:58
[2017-11-28] MEDS: HALOPERIDOL 10 MG TAB PO SCH ×2 (10:47→21:23)
--- NOTE | 2017-11-28 10:58 | HHI.PYPN ---
Subjective Chief Complaint: Psychosis Remarks Chart reviewed and discussed with nursing staff. Patient is very seclusive and timid. Patient complaining of pain in his mouth. Will order a hospitalist consult to rule out thrush. Patient returned to bed after breakfast. Speech is with low tone and volume. He denies any concerns and appears very depressed. Denies any suicidal ideations at this time. Mental Status Examination Appearance: Appropriate Consciousness: Alert Orientation: x4 Motor Activity: Normal gait Speech: Slow Language: Adequate Fund of Knowledge: Adequate Attention and Concentration: Adequate Memory: Unremarkable (Grossly intact on clinical exam) Mood: Appropriate Affect: Flat, Blunt Thought Process & Associations: Intact Thought Content: Appropriate Hallucination Type: None Delusion Type: Paranoid Suicidal Ideation: No Suicidal Plan: No Suicidal Intention: No Homicidal Ideation: No Homicidal Plan: No Homicidal Intention: No Results Vitals/IOs Vital Signs Date Time Temp Pulse Resp B/P (MAP) Pulse Ox O2 Delivery O2 Flow Rate FiO2 11/28/17 06:14 97.9 64 16 121/75 (90) 99 Assessment & Plan Problem List: (1) Schizophrenia, paranoid type ICD Codes: F20.0 - Paranoid schizophrenia Status: Acute (2) Polysubstance abuse ICD Codes: F19.10 - Other psychoactive substance abuse, uncomplicated Assessment & Plan: Patient is depressed, secluded and very shy. He is complaining of pain in his mouth and having difficulty eating. Will place a hospitalist consult to rule out thrush. He will be encouraged to participate in outdoor and unit activities. Assessment & Plan Estimated LOS: days Justification for Cont. Inpt. Moving patient to a lower level of care may result in his decompensation. Request HC Surrog/Guard Advoc?: Ida Lord November 28, 2017 10:58
[2017-11-28] MEDS: BENZTROPINE MESYLATE 1 MG TAB PO SCH ×2 (11:00→21:23)
[2017-11-28 18:18] VITALS: BP 131/79; PULSE 97; RESP 17; TEMP 97.8; O2SAT 98
[2017-11-28] MEDS: diphenhydrAMINE HCL 50 MG CAP PO PRN (21:23)
[2017-11-28] MEDS: REMOVE OLD NICODERM (NICOTINE) PATCH T-DERMAL SCH (21:24)
[2017-11-29] MEDS: hydrOXYzine HCL 50 MG TAB PO PRN (05:46)
[2017-11-29 06:03] VITALS: BP 113/69; PULSE 75; RESP 18; TEMP 98.7; O2SAT 98
[2017-11-29] MEDS: HALOPERIDOL 10 MG TAB PO SCH ×2 (09:32→21:25)
[2017-11-29] MEDS: BENZTROPINE MESYLATE 1 MG TAB PO SCH ×2 (09:32→21:25)
--- NOTE | 2017-11-29 15:04 | HHI.PYPN ---
Subjective Chief Complaint: Psychosis Remarks Patient seen and examined in weekend coverage. Chart reviewed. Case discussed with nursing staff. On my examination today, patient is in good spirits. He feels improved versus admission. He denies any SI, HI or AVH. Complains of some mild stiffness from antipsychotic but otherwise no side effects. Perhaps some mildly increased tone on exam but no cogwheeling, no dystonias, no dyskinesias. No other physical complaints. Review of Systems Except as stated in HPI: all other systems reviewed are Neg Mental Status Examination Appearance: Appropriate Consciousness: Alert Orientation: x4 Motor Activity: Normal gait Speech: Unremarkable Language: Adequate Fund of Knowledge: Adequate Attention and Concentration: Adequate Memory: Unremarkable (Grossly intact on clinical exam) Mood: Appropriate Affect: Appropriate Thought Process & Associations: Intact Thought Content: Appropriate Hallucination Type: None Delusion Type: None Suicidal Ideation: No Suicidal Plan: No Suicidal Intention: No Homicidal Ideation: No Homicidal Plan: No Homicidal Intention: No Insight: Poor Judgment: Poor Results Labs Labs reviewed Vitals/IOs Vital Signs Date Time Temp Pulse Resp B/P (MAP) Pulse Ox O2 Delivery O2 Flow Rate FiO2 11/29/17 06:03 98.7 75 18 113/69 (84) 98 Assessment & Plan Problem List: (1) Schizophrenia, paranoid type ICD Codes: F20.0 - Paranoid schizophrenia Status: Acute (2) Polysubstance abuse ICD Codes: F19.10 - Other psychoactive substance abuse, uncomplicated Assessment & Plan Titrate Cogentin to 2 mg twice daily to target probable EPS. Continue other medications as ordered. Continue other care as ordered. Justification for Cont. Inpt. Risk for decompensation in less restrictive environment. Discharge Planning As ordered by primary psychiatrist Request HC Surrog/Guard Advoc?: No Lukas Thomas MD November 29, 2017 15:04
[2017-11-29 18:56] VITALS: BP 120/76; PULSE 80; RESP 16; TEMP 97.7; O2SAT 99
[2017-11-29] MEDS: REMOVE OLD NICODERM (NICOTINE) PATCH T-DERMAL SCH (21:00)
[2017-11-29] MEDS: diphenhydrAMINE HCL 50 MG CAP PO PRN (21:47)
[2017-11-30 07:02] VITALS: BP 99/57; PULSE 73; RESP 17; TEMP 98.2; O2SAT 91
[2017-11-30] MEDS: BENZTROPINE MESYLATE 1 MG TAB PO SCH (09:39)
[2017-11-30] MEDS: HALOPERIDOL 10 MG TAB PO SCH (09:39)
[2017-11-30] MEDS ORDERED: HALO10TA PO (14:17)
[2017-11-30] MEDS ORDERED: Benztropine PO (14:17)
--- NOTE | 2017-11-30 14:18 | HHI.DS ---
Psychiatry Discharge Summary Inpatient Psychiatric care?: Yes Advance Directive: No Reason Not Provided: Due to Patient Condition Mental Health AdvanceDirective: No Health Care Proxy: No Admission Admission Date November 26, 2017 at 07:58 Admission Diagnosis: (1) Schizophrenia, paranoid type ICD Code: F20.0 - Paranoid schizophrenia (2) Polysubstance abuse ICD Code: F19.10 - Other psychoactive substance abuse, uncomplicated Brief History Mr. Pardo is a 37-year-old male with a history of schizophrenia who presents in transfer from [facility] to [facility] under a [facility]. Documentation from outside hospital reviewed. Patient presented there complaining of depression and suicidal ideation as well as seeing and hearing "biblical stuff. " He also reported command auditory hallucinations to self injure to the psychiatric screener at outside hospital. Reviewing our electronic medical record, I note that the patient was most recently admitted under my care at the beginning of October, at which time he was started on long-acting injectable Haldol decanoate. Patient seen and examined with nurse. Chart reviewed. Case discussed with nursing staff. On my examination today, the patient is a somewhat vague historian. He endorses ongoing auditory hallucinations of "same ol', same ol'. " When pressed, he reports to hearing indistinct voices "repeating stuff over and over again." He also reports some paranoia regarding his neighbors. No other delusional material elicited. He denies any suicidal or homicidal ideation. Mood is "okay, I guess" although the patient does report that he has been feeling down for the last few days without specific stressor. No other depressive or hypomanic/manic symptoms. Affect is quite flat. Remainder of the psychiatric ROS is negative. No acute physical complaints. Past psychiatric history: Patient has a history of schizophrenia. He follows at [facility]. He does report that he has followed up and has also received a long-acting injectable, but see below. Medication nonadherence is documented at outside hospital. He denies any history of psychiatric admissions or suicide attempts. Family history: The patient denies any family history of mental illness. Chemical dependency history: The patient denies any abuse of drugs or alcohol, although urine toxicology at outside hospital is positive for cocaine and cannabinoids. He can provide no explanation for this finding. Social history: Patient reports that this is unchanged from previous assessments. He denies any access to guns or firearms. I did place a call over to Nhan Scherer and patient's most recent reported medications were Zyprexa 10 mg at bedtime and trazodone 100 mg at bedtime. There is no record of recent long-acting injectable administration. Tobacco Use In Past 30 Days: Refused To Answer Alcohol Use: Never Hospital Course The patient is 37-year-old man, domiciled alone, unemployed, with a past psychiatric history of schizophrenia, no psychiatric admissions, no previous suicide attempts who was brought in under [facility] due to depression, suicidal ideation, auditory hallucinations to hurt himself which patient was admitted to the inpatient psychiatry unit for further evaluation and management. Patient was admitted to a locked, inpatient psychiatric unit. Patient was seen and examined on the unit by psychiatry. Patient was restarted on haloperidol 10 mg p.o. twice daily, and started benztropine 1 mg p.o. twice daily, which patient tolerated well with no adverse drug reactions noted. There was no evidence of any suicidality or homicidality on the inpatient unit and was noted to have cessation of auditory hallucinations with progression of treatment. Patient's behavior had been noted to be calm, cooperative, stable mood and noted to have improvement in mood and noted to be participatory and cooperative with staff with no behavioral disturbances. He agrees with outpatient follow up to continue mental health treatment. Counselor has made follow-up arrangements for continuity of care. On the day of discharge: Patient seen and examined with nurse and counselor. Chart reviewed. Case discussed with nurse and counselor. No behavioral issues overnight. On my examination today, the patient is agreeable to outpatient follow up and will return back to his residence. Collateral from patients mother had confirmed that the patient was back at baseline with no concerns with patients discharge. He denies any suicidal or homicidal ideation, intent or plan on direct questioning and contracts for safety. I can elicit no mood symptoms; denies any audiovisual hallucinations. No delusional material verbalized today. No physical complaints. Suicide and violence risk assessment on day of discharge both suggest lower imminent risk, and the patient's level of function is adequate for planned level of outpatient care. Patient has maximized benefit from this inpatient psychiatric hospital stay and will be discharged to back to his residence today with follow-up as arranged by counselor. Patient advised to return to psychiatric emergency room for any concerning psychiatric symptoms. Patient agrees with plan. Results Blood Pressure 99 / 57 Vital Signs Date Time Temp Pulse Resp B/P (MAP) Pulse Ox O2 Delivery O2 Flow Rate FiO2 11/30/17 07:02 98.2 73 17 99/57 (71) 91 WNL Summary of Procedures None Pending results at discharge: No Medications # of Antipsychotic meds at D/C: 1 Approp Antipsych med options 1 - Minimum of three failed multiple trials of monotherapy. 2 - Documented plan to taper to monotherapy due to previous use of multiple meds OR cross-taper in progress at D/C. 3 - Documentation of augmentation of Clozapine. 4 - Justification other than those listed in allowable values 1-3, document here : Discharge Discharge Date: November 30, 2017 Discharge Diagnosis: (1) Schizophrenia, paranoid type ICD Code: F20.0 - Paranoid schizophrenia Status: Acute (2) Polysubstance abuse ICD Code: F19.10 - Other psychoactive substance abuse, uncomplicated Pt Condition on Discharge: Stable Discharge Disposition: Discharge Home Discharge Instructions Diet Instructions: As Tolerated, No Restrictions Activities you can perform: Regular-No Restrictions Scheduled Appointment: Nhan Cody Appointment Date: December 01, 2017 Appointment Time: 8:00am Discharge Time > 30 minutes Mental Status Examination Appearance: Appropriate Consciousness: Alert Orientation: x4 Motor Activity: Normal gait Speech: Unremarkable Language: Adequate Fund of Knowledge: Adequate Attention and Concentration: Adequate Memory: Unremarkable (Grossly intact on clinical exam) Mood: Appropriate Affect: Appropriate Thought Process & Associations: Intact Thought Content: Appropriate Hallucination Type: None Delusion Type: None Suicidal Ideation: No Suicidal Plan: No Suicidal Intention: No Homicidal Ideation: No Homicidal Plan: No Homicidal Intention: No Insight: Fair Judgment: Impulsive Discharge/Advance Care Plan Health Problems: (1) Schizophrenia, paranoid type (2) Polysubstance abuse Goals to promote your health * To prevent worsening of your condition and complications * To maintain your health at the optimal level Directions to meet your goals Take your medications as prescribed Follow your dietary instruction Follow activity as directed Keep your appointments as scheduled Take your immunizations and boosters as scheduled If your symptoms worsen call your PCP, if no PCP go to Urgent Care Center or Emergency Room For 26/01 questions related to your inpatient stay or results of tests pending at discharge, please contact Dr. Elvin Jerry at Smoking is Dangerous to Your Health. Avoid second hand smoking Elvin Jerry MD November 30, 2017 14:18
== END 2017-11-30 15:00 | disposition home or self-care (01) | DRG 885 ==
LOC: H270 07:58 → H260 11-29 11:55
PROVIDERS: ADMIT Student in an Organized Health Care Education/Training Program; ATTEND Student in an Organized Health Care Education/Training Program
DX: F20.0 Paranoid schizophrenia (principal); R45.851 Suicidal ideations; G25.9 Extrapyramidal and movement disorder, unspecified; Z91.14 Patient's other noncompliance with medication regimen; F19.10 Other psychoactive substance abuse, uncomplicated; B37.9 Candidiasis, unspecified; Z79.899 Other long term (current) drug therapy
CPT/HCPCS: Q0163

== ENCOUNTER 2018-03-09 06:50 | Inpatient (IN) ==
[2018-03-09] MEDS ORDERED: Acetaminophen 325 MG Tablet PO PRN (09:53)
[2018-03-09] MEDS ORDERED: Aluminum/Magnesium/Simethacone Susp 30 ML UDC PO PRN (09:53)
--- NOTE | 2018-03-09 09:57 | P.HPPSY ---
Provisional Diagnosis Admission Date: March 09, 2018 09:41 [place] I.: 1. Adjustment disorder, unspecified Rule out malingering for care home 2. History of schizophrenia and polysubstance abuse [place] II.: Deferred Competence Certification of Person's Competence To Provide Express and Informed Consent I have personally examined Arturo Pardo, a person being served at [facility] on, March 09, 2018 0957. Express and informed consent means consent voluntarily given in writing, by a competent person, after sufficient explanation and disclosure of the subject matter involved to enable the person to make a knowing and willful decision without any element of force, fraud, deceit, duress, or other form of constraint or coercion. This person is 18 years of age or older, is not now known to be incompetent to consent to treatment with a guardian advocate, and does not have a health care surrogate or proxy currently making medical treatment decisions. I have found this person to be one of the following: [X] Competent to provide express and informed consent, as defined above, for voluntary admission to this facility and is competent to provide express and informed consent for treatment. He/she has the consistent capacity to make well reasoned, willful, and knowing decisions concerning his or her medical or mental health treatment. The person fully and consistently understands the purpose of the admission for examination/placement and is fully capable of personally exercising all rights assured under [place] [] Incompetent to provide express and informed consent to voluntary admission, and this is incompetent to provide express and informed consent to treatment. The person must be transferred to involuntary status and a petition for a guardian advocate filed with the Circuit Court. [] Refusing to provide express and informed consent to voluntary admission but is competent to provide express and informed consent for treatment. The person must be discharged or transferred to involuntary status. Form shall be completed within 24 hours of a person's arrival at the receiving facility and filed in the clinical record of each person: 1. Admitted on a voluntary basis 2. Permitted to provide express and informed consent to his/her own treatment 3. Allowed to transfer from involuntary to voluntary status 4. Prior to permitting a person to consent to his or her own treatment after having been previously found incompetent to consent to treatment. History of Present Illness Capacity: Has capacity Chief Complaint: Dailey Act History of Present Illness: Mr. Pardo is a 37-year-old male with a history of schizophrenia and polysubstance abuse who presents in transfer from [facility] under a Dailey Act. Documentation from outside hospital reviewed. Patient told ED provider the he had been experiencing SI for "the past few days" and further stated that he was "hearing voices telling him to do violent things." It is noted in documentation from outside hospital that he is presently homeless. Reviewing our electronic medical record, I note that the patient was psychiatrically hospitalized here at [facility] most recently under Dr. Jerry in November of this year, at which point he was on Haldol and Cogentin. Patient seen and examined with counselor and nurse. Chart reviewed. Case discussed with nursing staff. On my examination today, the patient presents as singularly unengaged in interview. He says that he received some IM medication at [place] and tells us to return later in the day to complete the interview. I accede to his wishes and complete my other rounds on the unit before returning to the patient. However, when I endeavor to examine him again, he remains uncooperative. He is sleeping but easily awakened and seems able to converse, but it seems he chooses not to do so. He declines to answer when I try to review the psychiatric ROS with him. Psychiatric interview is limited for this reason, and I am unable to obtain any meaningful past psychiatric, family, chemical dependency or social history from the patient for the same reason. I refer the reader to my H&P from November of this year under [id number]. He voices no physical complaints. - Inpatient Certification I certify that the inpatient services were ordered in accordance with Medicare regulations governing the order. This includes certification that hospital inpatient services are reasonable and necessary and in the case of services not specified as inpatient-only under 42 CFR 419.22(n), that they are appropriately provided as inpatient services in accordance to with the 2-midnight benchmark under 43 CFR 412.3(e) I certify that inpatient psychiatric hospital services are medically necessary. Evaluation and treatment and/or diagnostic testing are expected to improve the patient's condition. The patient needs on a daily basis, active treatment furnished directly by or requiring the supervision of inpatient psychiatric facility personnel. Estimated Total Length of Stay (Days): 3 Plans for Post Hospital Care: Not yet determined Review of Systems other (Limitation: Uncooperative) Quality Measures - Psychiatric History Psychological trauma history: Patient uncooperative - Patient Strengths Patient's strengths (minimum of 2): Able to access clinical care. Attending to basic needs. Medications and Allergies Active Medications: Active Medications Acetaminophen (Tylenol) 650 mg PO Q4H PRN PRN Reason: Pain 1-5 or Temp >101F Al Hydrox/Mg Hydrox/Simethicone (Mag-Al Plus Susp Liq) 30 ml PO Q6H PRN PRN Reason: DYSPEPSIA Al Hydroxide/Mg Hydroxide (Milk Of Magnesia Liq) 30 ml PO Q12H PRN PRN Reason: Mild Constipation Diphenhydramine HCl (Benadryl) 50 mg PO HS PRN PRN Reason: INSOMNIA Nicotine (Habitrol 21 Mg Patch.24 Hr) 1 patch T-DERMAL DAILY PRN PRN Reason: Nicotine craving Patch Removal (Remove Old Patch) 1 each T-DERMAL DAILY MAXIME Allergies Allergy/AdvReac Type Severity Reaction Status Date / Time No Known Allergies Allergy Unknown Uncoded 10/06/17 21:00 Results - Labs Labs: Labs from outside hospital reviewed: CBC unremarkable. BMP unremarkable. Tylenol and salicylate level undetectable. Alcohol level undetectable. Urinalysis bland except for trace ketones and 1+ urobilinogen. Urine toxicology negative. Exam Vital signs: Vital Signs Temp Pulse Resp BP 03/09/18 10:00 98.3 F 81 18 121/61 Narrative: Physical examination completed by ED provider at outside hospital. On my examination today, the patient appears to be in no acute physical distress. No motor abnormalities noted. No signs of intoxication or withdrawal noted. No stupor, no posturing, no stereotypies, no other signs of catatonia noted. Labs and vital signs reviewed. Mental Status Examination Appearance: Disheveled (Maintaining basic hygiene) Consciousness: Other (Sleeping but easily awakened) Orientation: Person (At least) Motor Activity: Other (No motor abnormalities noted) Speech: Hesitant Language: Other (Selectively mute at times) Mood: Other (Somewhat dysphoric) Affect: Blunt Thought Process & Associations: Other (Limited sample) Thought Content: Other (Limited sample) Mental Status Exam Remarks: Mental status exam is limited as the patient is uncooperative with interview. I am unable to assess thought content, SI, HI, insight or judgment for this reason. Assessment and Plan - Assessment (1) Adjustment disorder, unspecified Code(s): F43.20 - Adjustment disorder, unspecified Status: Acute (2) History of schizophrenia Code(s): Z86.59 - Personal history of other mental and behavioral disorders Status: Acute (3) History of substance abuse Code(s): Z87.898 - Personal history of other specified conditions Status: Acute - Plan Plan: 37-year-old male with psychiatric history as detailed above who presents in transfer from outside hospital under a Dailey act. On my examination today, the patient is fairly uncooperative with interview. There is no indication on exam of catatonia. Although paranoia from decompensated psychosis or some other factor may be driving uncooperativeness today, suspicion is for selective mutism , perhaps as a gambit to extend his inpatient stay by refusing to participate in interview as he is otherwise homeless per documentation from outside hospital. I will resume his previously efficacious psychotropics to prevent psychotic decompensation given his history of schizophrenia and monitor on the inpatient unit. Admit inpatient. Voluntary status. Resume Haldol 10 mg twice daily and Cogentin 2 mg twice daily as previously prescribed during admission under Dr. Jerry. Check EKG for QTC. Vitals every shift. Counselor to see. Disposition planning. Estimated length of stay: 2-3 days. Justification for Continued Inpatient Stay: Monitoring for psychiatric symptomatology. Monitoring for impairment in safety. Discharge Planning: Pending further observation Request Healthcare Surrogate/Guardian Advocate?: No
[2018-03-09 11:03] VITALS: RESP 18
[2018-03-09] MEDS ORDERED: Haloperidol Inj 5 MG/ML Ampul ONE (22:02)
[2018-03-09] MEDS ORDERED: Haloperidol Inj 5 MG/ML Ampul IM ONE (22:30)
[2018-03-09] MEDS: Benztropine 2 MG Tablet PO SCH (23:55)
[2018-03-10] MEDS: Benztropine 2 MG Tablet PO SCH (08:42)
[2018-03-10 10:11] LABS: Chol/HDL Ratio 4.68 Ratio; HDL Cholesterol 25.4 mg/dL (40.0-60.0)
--- NOTE | 2018-03-10 13:18 | ECG ---
Date Performed: 03/09/2018 Time Performed: 15:57:41 PTAGE: 37 years EKG: Sinus rhythm POSSIBLE INFERIOR MYOCARDIAL INFARCTION , PROBABLY OLD WITH POSTERIOR EXTENSION BORDERLINE ECG NO PREVIOUS TRACING DOCTOR: Juan Diego Melton Interpretating Date/Time 03/10/2018 13:13:16
--- NOTE | 2018-03-10 14:34 | P.PNPSY ---
Subjective Chief Complaint: Dailey Act Remarks: Patient seen and examined with nurse and counselor. Chart reviewed. Case discussed with nursing staff. Patient was medicated with Haldol and Ativan IM overnight. Precipitating event per nursing notes as follows: "He is rapidly pacing the hallways and standing, staring into the nurses station. The pt is becoming more agitated and talking to himself. The pt has gone to the shower twice this evening to help him calm down." He did not receive scheduled Haldol as he declined to sign consent for this medication per nursing report. He has also declined to consent for voluntary admission and remains under a Dailey act. On my examination today, the patient is calm and cooperative. He is much more conversant and interactive today versus yesterday. He tells me "I kind of got stuck here on accident." He relates that he was staying outside and it was cold and raining. He says that he told the ER provider "that I wanted to get checked in" to the hospital so that he would have a place to stay. The patient admits that he malingered the psychiatric symptoms he was having at outside hospital in order to facilitate admission to the inpatient unit for correction. He presently denies any auditory or visual hallucinations. He denies any command auditory hallucinations. He denies any suicidal or homicidal ideation he denies any recent psychiatric admissions or suicide attempts. He admits to use of "a tiny bit" of marijuana. He says that he typically takes Risperdal 2 mg at bedtime without associated Cogentin, and he would prefer to be placed on this medication rather than the Haldol. No acute physical complaints. He is somewhat discharged focused but agrees to remain until tomorrow for observation. Patient declined vital signs this morning. Laboratory Results - last 24 hr 03/10/18 09:10 Triglycerides 157 H Cholesterol 119 L LDL Cholesterol, Calc 62 HDL Cholesterol 25.4 L Cholesterol/HDL Ratio 4.68 Labs reviewed. EKG read as sinus rhythm with QTC of 415 ms. Review of Systems All other systems reviewed negative except as stated in HPI Mental Status Examination Appearance: Appropriate Consciousness: Alert Orientation: x4 Motor Activity: Normal gait, Other (No abnormal motor movements noted) Speech: Unremarkable Language: Adequate Fund of Knowledge: Adequate Attention and Concentration: Adequate Memory: Unremarkable (Grossly intact on clinical exam) Mood: Appropriate Affect: Blunt Thought Process & Associations: Intact, Logical, Linear Thought Content: Appropriate Hallucination Type: None Delusion Type: None Suicidal Ideation: No Suicidal Plan: No Suicidal Intention: No Homicidal Ideation: No Homicidal Plan: No Homicidal Intention: No Insight: Poor Judgment: Poor Assessment and Plan - Assessment (1) Schizophrenia Code(s): F20.9 - Schizophrenia, unspecified Status: Acute (2) Cannabis abuse Code(s): F12.10 - Cannabis abuse, uncomplicated Status: Acute (3) Malingering Code(s): Z76.5 - Malingerer [conscious simulation] Status: Suspected - Plan Plan: Patient admits to malingering psychiatric symptoms at outside hospital for correction, although he was observed overnight responding to internal stimuli. Malingering is suspected, but we need to rule out decompensated psychosis which the patient is trying to obscure by reporting malingering of psychiatric symptoms. I will discontinue Haldol/Cogentin and replace with his preferred Risperdal 2mg qHS and monitor overnight. Continue to monitor on the inpatient unit. Continue other care as ordered. Justification for Continued Inpatient Stay: Medication changes. Monitoring for impairment in reality construction. Discharge Planning: Possible discharge tomorrow. Continue to monitor under Dailey act. Request Healthcare Surrogate/Guardian Advocate?: No (1) Schizophrenia Qualifiers: Schizophrenia type: paranoid schizophrenia Qualified Code(s): F20.0 - Paranoid schizophrenia
[2018-03-10 15:23] LABS: Hemoglobin A1c 5.3 % (4.3-6.0)
[2018-03-11 05:48] VITALS: BP 128/63; PULSE 76; TEMP 98.2; O2SAT 97
--- NOTE | 2018-03-11 08:40 | P.DSPSY ---
Psychiatry Discharge Summary Inpatient Psychiatric care?: Yes Advance Directives: Unknown Reason for Unknown:: Other Mental Health Advance Directive: No Health Care Proxy: No - Admission Admission Date: March 09, 2018 09:41 - Admission Diagnosis (1) Adjustment disorder, unspecified Code(s): F43.20 - Adjustment disorder, unspecified (2) History of schizophrenia Code(s): Z86.59 - Personal history of other mental and behavioral disorders (3) History of substance abuse Code(s): Z87.898 - Personal history of other specified conditions Brief History: Mr. Pardo is a 37-year-old male with a history of schizophrenia and polysubstance abuse who presents in transfer from [facility] under a Dailey Act. Documentation from outside hospital reviewed. Patient told ED provider the he had been experiencing SI for "the past few days" and further stated that he was "hearing voices telling him to do violent things." It is noted in documentation from outside hospital that he is presently homeless. Reviewing our electronic medical record, I note that the patient was psychiatrically hospitalized here at [place] most recently under Dr. Jerry in November of this year, at which point he was on Haldol and Cogentin. Patient seen and examined with counselor and nurse. Chart reviewed. Case discussed with nursing staff. On my examination today, the patient presents as singularly unengaged in interview. He says that he received some IM medication at [place] and tells us to return later in the day to complete the interview. I accede to his wishes and complete my other rounds on the unit before returning to the patient. However, when I endeavor to examine him again, he remains uncooperative. He is sleeping but easily awakened and seems able to converse, but it seems he chooses not to do so. He declines to answer when I try to review the psychiatric ROS with him. Psychiatric interview is limited for this reason, and I am unable to obtain any meaningful past psychiatric, family, chemical dependency or social history from the patient for the same reason. I refer the reader to my H&P from November of this year under [id number]. He voices no physical complaints. Tobacco Use In Past 30 Days: No How Often Do You Have a Drink Containing Alcohol: Monthly or less Hospital Course: Patient was admitted to a locked, inpatient psychiatric unit. Appropriate precautions were in place throughout patient's hospital stay. Patient was seen and examined on the unit by psychiatry and also visited by counselor. Psychotropic medications were adjusted. There was no evidence of any suicidality or homicidality on the inpatient unit. There was no evidence of self-care deficit. On the day of discharge: Patient seen and examined with nurse. Chart reviewed. Case discussed with nursing staff. No behavioral issues noted overnight. Patient was medication compliant with ordered Risperdal. On my examination today, the patient is requesting discharge from the inpatient psychiatric unit today. He denies any suicidal or homicidal ideation, intent or plan. I can elicit no hypomanic or manic or depressive symptoms. He denies any audiovisual hallucinations. No delusional material. Denies side effects from medications. I offered the patient initiation of a long-acting injectable, but he declines. No physical complaints. Weighing the relevant factors and based on the available evidence, I perforator typist that the patient does not meet criteria for involuntary psychiatric hospitalization. There is no evidence of imminent risk of harm to self or others from mental illness, nor is there evidence of self-care deficit to support involuntary psychiatric hospitalization. He is requesting discharge from the inpatient psychiatric unit , and I have no basis to retain him over his objection. Patient will be discharged today with psychiatric follow-up as arranged by counselor. Patient is also to follow up with primary care. I have counseled the patient to abstain from substances of abuse and recommended chemical dependency evaluation and treatment on an outpatient basis. I have counseled the patient regarding warning signs for need to return to the psychiatric emergency room as part of a general safety plan. There is a strong suspicion of malingering as a helper/driver for this hospitalization. The patient himself admitted that he malingered psychiatric symptoms to facilitate admission to the inpatient psychiatric unit, see my progress note from 03/10. - Discharge Discharge Date: 03/11/18 - Discharge Diagnosis (1) Schizophrenia Diagnosis: Principal (stable) Code(s): F20.9 - Schizophrenia, unspecified Status: Chronic (2) Malingering Diagnosis: Secondary Code(s): Z76.5 - Malingerer [conscious simulation] Status: Suspected (3) History of substance abuse Diagnosis: Secondary Code(s): Z87.898 - Personal history of other specified conditions Status: Chronic Discharge Disposition: Home - Discharge Instructions Discharge Diet: Regular Diet Activities You Can Perform: Weight Bearing As Tolerat - Discharge Time <= 30 minutes Mental Status Examination Appearance: Appropriate Consciousness: Alert Orientation: x4 Motor Activity: Normal gait, Other (No motor abnormalities noted) Speech: Unremarkable Language: Adequate Fund of Knowledge: Adequate Attention and Concentration: Adequate Memory: Unremarkable (Grossly intact on clinical exam) Mood: Appropriate Affect: Blunt Thought Process & Associations: Intact, Logical, Goal directed, Linear Thought Content: Appropriate Hallucination Type: None Delusion Type: None Suicidal Ideation: No Suicidal Plan: No Suicidal Intention: No Homicidal Ideation: No Homicidal Plan: No Homicidal Intention: No Insight: Poor Judgment: Poor Mental Status Exam Remarks: Insight and judgment are chronically poor. Discharge/Advance Care Plan - Results Vital Signs: Last Vital Signs Temp 98.2 F 03/11/18 05:47 Pulse 76 03/11/18 05:47 Resp 18 03/11/18 05:47 BP 128/63 03/11/18 05:47 Pulse Ox 97 03/11/18 05:47 Lab Results: Abnormal Lab Results 03/10/18 03/10/18 09:10 09:10 Hemoglobin A1c 5.3 Triglycerides 157 H Cholesterol 119 L LDL Cholesterol, Calc 62 HDL Cholesterol 25.4 L Cholesterol/HDL Ratio 4.68 Laboratory Results Hemoglobin A1c 5.3 % (4.3-6.0) 03/10/18 09:10 Triglycerides 157 mg/dL (42-150) H 03/10/18 09:10 Cholesterol 119 mg/dL (120-200) L 03/10/18 09:10 LDL Cholesterol, Calc 62 mg/dL (0-99) 03/10/18 09:10 HDL Cholesterol 25.4 mg/dL (40.0-60.0) L 03/10/18 09:10 Summary of Procedures: None done Pending Results: None - Medications Number of antipsychotic medications at discharge: 1 - Discharge Care Plan Goals to Promote Your Health: * To prevent worsening of your condition and complications * To maintain your health at the optimal level Directions to Meet Your Goals: Take your medications as prescribed Follow your dietary instruction Follow activity as directed Keep your appointments as scheduled Take your immunizations and boosters as scheduled If your symptoms worsen call your PCP, if no PCP go to Urgent Care Center or Emergency Room For 26/01 questions related to your inpatient stay or results of tests pending at discharge, please contact Dr. Lukas Thomas MD at Smoking is Dangerous to Your Health. Avoid second hand smoking (1) Schizophrenia Qualifiers: Schizophrenia type: paranoid schizophrenia Qualified Code(s): F20.0 - Paranoid schizophrenia
== END 2018-03-11 11:05 | disposition home or self-care (01) ==
LOC: H270 09:41
PROVIDERS: ADMIT Psychiatry & Neurology Psychiatry; ATTEND Psychiatry & Neurology Psychiatry

== ENCOUNTER 2018-08-20 08:54 | Inpatient (IN) ==
[2018-08-20] MEDS ORDERED: Bisacodyl 10 MG Supp RECTAL PRN (12:24)
[2018-08-20] MEDS ORDERED: Aluminum/Magnesium/Simethacone Susp 30 ML UDC PO PRN (12:24)
[2018-08-20] MEDS: Senna/Docusate Sodium 8.6/50 MG Tablet PO SCH (21:37)
[2018-08-21] MEDS: Senna/Docusate Sodium 8.6/50 MG Tablet PO SCH ×2 (09:43→21:47)
[2018-08-21 10:19] LABS: Anion Gap 6 meq/L (5-15); Blood Urea Nitrogen 13 mg/dL (7-18); Calcium 8.6 mg/dL (8.5-10.1); Chloride 111 meq/L (98-107); Cholesterol 182 mg/dL (120-200); Glomerular Filtration Rate Greater Than 89 mL/min (>89); Glucose,Random 103 mg/dL (74-106); Sodium 143 meq/L (136-145)
[2018-08-21 10:22] LABS: Chol/HDL Ratio 4.91 Ratio; LDL Cholesterol,Calculated 111 mg/dL (0-99); Triglycerides 172 mg/dL (42-150)
--- NOTE | 2018-08-21 12:13 | P.HPPSY ---
Provisional Diagnosis Admission Date: August 20, 2018 10:58 Competence Certification of Person's Competence To Provide Express and Informed Consent I have personally examined Arturo Pardo, a person being served at [facility] on, August 21, 2018 1203. Express and informed consent means consent voluntarily given in writing, by a competent person, after sufficient explanation and disclosure of the subject matter involved to enable the person to make a knowing and willful decision without any element of force, fraud, deceit, duress, or other form of constraint or coercion. This person is 18 years of age or older, is not now known to be incompetent to consent to treatment with a guardian advocate, and does not have a health care surrogate or proxy currently making medical treatment decisions. I have found this person to be one of the following: [X] Competent to provide express and informed consent, as defined above, for voluntary admission to this facility and is competent to provide express and informed consent for treatment. He/she has the consistent capacity to make well reasoned, willful, and knowing decisions concerning his or her medical or mental health treatment. The person fully and consistently understands the purpose of the admission for examination/placement and is fully capable of personally exercising all rights assured [place] [] Incompetent to provide express and informed consent to voluntary admission, and this is incompetent to provide express and informed consent to treatment. The person must be transferred to involuntary status and a petition for a guardian advocate filed with the Circuit Court. [] Refusing to provide express and informed consent to voluntary admission but is competent to provide express and informed consent for treatment. The person must be discharged or transferred to involuntary status. Form shall be completed within 24 hours of a person's arrival at the receiving facility and filed in the clinical record of each person: 1. Admitted on a voluntary basis 2. Permitted to provide express and informed consent to his/her own treatment 3. Allowed to transfer from involuntary to voluntary status 4. Prior to permitting a person to consent to his or her own treatment after having been previously found incompetent to consent to treatment. History of Present Illness Capacity: Has capacity Chief Complaint: ah/si History of Present Illness: Patient is a 38-year-old male here as a transfer from [facility]. Patient has an extensive history of schizophrenia and multiple admissions to [place]. Per [facility] act patient had suicidal ideation and was having auditory hallucinations. Patient has poor insight into his admission claiming that he never had suicidal ideation and he was not having any hallucinations. However, nursing notes patient talking to himself and responding to internal stimuli throughout the day. Patient is behaving well on the unit. Patient says he has been compliant with his medications. Past psych: Patient has an extensive history of schizophrenia and is a patient of [facility]. He had been in a long-acting injectable in the past but says he is only been treated with p.o. Risperdal at this time. Per record, there is a history of documented nonadherence in the outpatient setting. Past medications include Zyprexa and trazodone Past medical: See chart Past Famhx: Denies Past Social: Patient claims that he is and has 8 children by 3 different women. This is unlikely per nursing. His urine drug screen is positive for benzodiazepines and marijuana This note is a late entry given computer systems were down. Patient was evaluated before 11 AM - Inpatient Certification I certify that the inpatient services were ordered in accordance with Medicare regulations governing the order. This includes certification that hospital inpatient services are reasonable and necessary and in the case of services not specified as inpatient-only under 42 CFR 419.22(n), that they are appropriately provided as inpatient services in accordance to with the 2-midnight benchmark under 43 CFR 412.3(e) I certify that inpatient psychiatric hospital services are medically necessary. Evaluation and treatment and/or diagnostic testing are expected to improve the patient's condition. The patient needs on a daily basis, active treatment furnished directly by or requiring the supervision of inpatient psychiatric facility personnel. Estimated Total Length of Stay (Days): 7 Plans for Post Hospital Care: Home Review of Systems All other systems reviewed negative except as stated in HPI PMFSH - History History Provided By: Patient - Tobacco History Second Hand Smoke Exposure: Yes Tobacco Use In Past 30 Days: Yes Smoking Status: Current every day smoker Tobacco Type: Cigarettes - Alcohol History How Often Do You Have a Drink Containing Alcohol: Never - Substance Use History Substance History: No History of Abuse, Active Abuse - Substance Use Type Crack/Cocaine Status: Active Route Used: By Mouth, Inhalation Reason for Use: Feels Good - Travel History Recent Travel in the [place] Within the Last 8 Weeks: No Recent Travel Out of the Country Within the Last 8 Weeks: No - Immunization History Tetanus Immunization: Unsure Hx Influenza Vaccine This Season: No Medications and Allergies Active Medications: Active Medications Al Hydrox/Mg Hydrox/Simethicone (Mag-Al Plus Susp Liq) 30 ml PO Q6H PRN PRN Reason: DYSPEPSIA Al Hydroxide/Mg Hydroxide (Milk Of Magnesia Liq) 30 ml PO Q12H PRN PRN Reason: Mild Constipation Bisacodyl (Dulcolax Supp) 10 mg RECTAL DAILY PRN PRN Reason: SEVERE CONSITIPATION Hydroxyzine HCl (Atarax) 50 mg PO Q6H PRN PRN Reason: amxiety or insomnia Lactulose (Lactulose Liq) 30 ml PO DAILY PRN PRN Reason: SEVERE CONSITIPATION Risperidone (Risperdal) 2 mg PO BID [facility] Last Admin: 08/21/18 09:43 Dose: 2 mg Senna/Docusate Sodium (Dipti-Colace) 1 tab PO BID [facility] Last Admin: 08/21/18 09:43 Dose: 1 tab Sennosides (Senokot) 17.2 mg PO Q12H PRN PRN Reason: Moderate Constipation Allergies Allergy/AdvReac Type Severity Reaction Status Date / Time No Known Allergies Allergy Unknown Uncoded 10/06/17 21:00 Home Medications Medication Instructions Recorded Confirmed Type paliperidone palmitate 156 mg IM QMONTH 04/08/18 08/20/18 History Results - Labs CBC & Chem 7: 08/21/18 09:05 Labs: Laboratory Results - last 24 hr 08/21/18 09:05 Sodium 143 Potassium 4.0 Chloride 111 H Carbon Dioxide 26.0 Anion Gap 6 BUN 13 Creatinine 0.84 Estimated GFR Greater than 89 Random Glucose 103 Calcium 8.6 Triglycerides 172 H Cholesterol 182 LDL Cholesterol, Calc 111 H HDL Cholesterol 37.0 L Cholesterol/HDL Ratio 4.91 Exam Vital signs: Vital Signs 08/20/18 12:20 08/21/18 06:00 Temperature 98.2 F 98 F Pulse Rate 85 85 Respiratory Rate 17 18 Blood Pressure 133/74 120/60 Pulse Oximetry 93 L Intake & Output 08/20/18 08/21/18 08/21/18 18:59 06:59 18:59 Weight 121.6 kg Other: Weight On Admission 121.6 kg Mental Status Examination Appearance: Disheveled Consciousness: Alert Orientation: x4 Speech: Unremarkable, Pressured Language: Adequate Fund of Knowledge: Adequate Attention and Concentration: Easily distracted Memory: Impaired Mood: Sad, Irritable Affect: Anxious Thought Process & Associations: Loose associations Thought Content: Hallucinations, Preoccupations Hallucination Type: Auditory (Responding to internal stimuli) Delusion Type: None Suicidal Ideation: No Suicidal Plan: No Suicidal Intention: No Homicidal Ideation: No Homicidal Plan: No Homicidal Intention: No Insight: Poor Judgment: Poor Assessment and Plan - Assessment (1) Schizoaffective disorder Code(s): F25.9 - Schizoaffective disorder, unspecified Status: Acute - Plan Plan: Estimated LOS: [] days Patient may sign voluntary. We will restart his Risperdal at current dosing given possible noncompliance. I suggest he be transitioned to long-acting injectable. Justification for Continued Inpatient Stay: Patient would decompensate in a less restrictive setting (1) Schizoaffective disorder Qualifiers:
[2018-08-21 12:41] LABS: Hemoglobin A1c 5.5 % (4.3-6.0)
[2018-08-22 06:23] VITALS: RESP 17
[2018-08-22] MEDS: Senna/Docusate Sodium 8.6/50 MG Tablet PO SCH ×2 (09:18→21:19)
--- NOTE | 2018-08-22 13:25 | P.PNPSY ---
Subjective Chief Complaint: ah/si Remarks: Reviewed electronic medical record and discussed with nursing staff. Rounded with NICK Shin. Patient pacing in the hallway. Endorses auditory hallucinations , states " they never go away." When asked if they where manageable , patient indicated "yes." Nursing reports that the patient will not shower and is malodorous. Patient states he takes a shower daily. He appears internally stimulated and paranoid. No behavioral concerns. Denies SI/ HI. Review of Systems All other systems reviewed negative except as stated in HPI Mental Status Examination Appearance: Disheveled Consciousness: Alert Orientation: x4 Speech: Unremarkable, Pressured Language: Adequate Fund of Knowledge: Adequate Attention and Concentration: Easily distracted Memory: Impaired Mood: Sad, Irritable Affect: Anxious Thought Process & Associations: Loose associations Thought Content: Hallucinations, Preoccupations Hallucination Type: Auditory (Responding to internal stimuli) Delusion Type: None Suicidal Ideation: No Suicidal Plan: No Suicidal Intention: No Homicidal Ideation: No Homicidal Plan: No Homicidal Intention: No Insight: Poor Judgment: Poor Assessment and Plan - Assessment (1) Schizophrenia Code(s): F20.9 - Schizophrenia, unspecified Status: Chronic - Plan Plan: Estimated LOS: [] days 08/22/18 continue current treatment plan. Encourage patient to shower and conduct daily hygiene. 08/21/18 Patient may sign voluntary. We will restart his Risperdal at current dosing given possible noncompliance. I suggest he be transitioned to long- acting injectable. Justification for Continued Inpatient Stay: Moving patient to a less restrictive environment may result in his decompensation. (1) Schizophrenia Qualifiers: Schizophrenia type: paranoid schizophrenia Qualified Code(s): F20.0 - Paranoid schizophrenia
[2018-08-23 06:15] VITALS: BP 104/55; PULSE 69; TEMP 98.1; O2SAT 96
[2018-08-23] MEDS: Senna/Docusate Sodium 8.6/50 MG Tablet PO SCH (10:17)
--- NOTE | 2018-08-23 11:24 | P.DSPSY ---
Psychiatry Discharge Summary Inpatient Psychiatric care?: Yes Advance Directives: No Reason for Unknown:: Other Mental Health Advance Directive: No Health Care Proxy: No - Admission Admission Date: August 20, 2018 10:58 Brief History: Patient is a 38-year-old male here as a transfer from [facility]. Patient has an extensive history of schizophrenia and multiple admissions to [place]. Per [facility]iley act patient had suicidal ideation and was having auditory hallucinations. Patient has poor insight into his admission claiming that he never had suicidal ideation and he was not having any hallucinations. However, nursing notes patient talking to himself and responding to internal stimuli throughout the day. Patient is behaving well on the unit. Patient says he has been compliant with his medications. Past psych: Patient has an extensive history of schizophrenia and is a patient of [facility]. He had been in a long-acting injectable in the past but says he is only been treated with p.o. Risperdal at this time. Per record, there is a history of documented nonadherence in the outpatient setting. Past medications include Zyprexa and trazodone Past medical: See chart Past Famhx: Denies Past Social: Patient claims that he is and has 8 children by 3 different women. This is unlikely per nursing. His urine drug screen is positive for benzodiazepines and marijuana This note is a late entry given computer systems were down. Patient was evaluated before 11 AM Tobacco Use In Past 30 Days: Yes How Often Do You Have a Drink Containing Alcohol: Never Hospital Course: Course in the hospital some clear why the patient was admitted but the patient does claim that he is not had any suicidal thoughts and he has not had hallucinations however there is a history of noncompliance and the patient apparently was admitted because he was felt to be suicidal and having hallucinations. At the present time I see no evidence to support the patient's continued stay in the hospital. Suicide risk assessment on day of discharge suggest lower than imminent risk from mental illness. Patient is denying suicidal ideation. There is no evidence of impairment in reality construction. We will bolster protective factors by relinking the patient with outpatient psychiatric services. There is no evidence of self-care deficit at time of discharge. There is no evidence to support an involuntary hospitalization therefore discharge order placed per patient's request. - Discharge Discharge Date: 08/23/18 Discharge Disposition: Home - Discharge Instructions Discharge Diet: Regular Diet Activities You Can Perform: Regular- No Restrictions - Discharge Time > 30 minutes Mental Status Examination Appearance: Disheveled Consciousness: Alert Orientation: x4 Speech: Unremarkable, Pressured Language: Adequate Fund of Knowledge: Adequate Attention and Concentration: Easily distracted Memory: Impaired Mood: Sad, Irritable Affect: Anxious Thought Process & Associations: Loose associations Thought Content: Hallucinations, Preoccupations Hallucination Type: Auditory (Responding to internal stimuli) Delusion Type: None Suicidal Ideation: No Suicidal Plan: No Suicidal Intention: No Homicidal Ideation: No Homicidal Plan: No Homicidal Intention: No Insight: Poor Judgment: Poor Discharge/Advance Care Plan - Results Vital Signs: Last Vital Signs Temp 98.1 F 08/23/18 06:00 Pulse 69 08/23/18 06:00 Resp 17 08/23/18 06:00 BP 104/55 L 08/23/18 06:00 Pulse Ox 96 08/23/18 06:00 Lab Results: Laboratory Results Hemoglobin A1c 5.5 % (4.3-6.0) 08/21/18 09:05 Triglycerides 172 mg/dL (42-150) H 08/21/18 09:05 Cholesterol 182 mg/dL (120-200) 08/21/18 09:05 LDL Cholesterol, Calc 111 mg/dL (0-99) H 08/21/18 09:05 HDL Cholesterol 37.0 mg/dL (40.0-60.0) L 08/21/18 09:05 Summary of Procedures: None Pending Results: None - Medications Number of antipsychotic medications at discharge: 2 - Discharge Care Plan Goals to Promote Your Health: * To prevent worsening of your condition and complications * To maintain your health at the optimal level Directions to Meet Your Goals: Take your medications as prescribed Follow your dietary instruction Follow activity as directed Keep your appointments as scheduled Take your immunizations and boosters as scheduled If your symptoms worsen call your PCP, if no PCP go to Urgent Care Center or Emergency Room For 26/01 questions related to your inpatient stay or results of tests pending at discharge, please contact Dr. Hollis Ma MD at Smoking is Dangerous to Your Health. Avoid second hand smoking
== END 2018-08-23 10:30 | disposition home or self-care (01) | DRG 885 ==
LOC: H270 10:58 → H260 08-22 18:12
PROVIDERS: ADMIT Psychiatry & Neurology Child & Adolescent Psychiatry; ATTEND Psychiatry & Neurology Child & Adolescent Psychiatry